=== PATIENT | male | born 1985 | race Caucasian/White ===

== ENCOUNTER 2017-12-27 20:04 | Emergency (ER) | payer OTHER ==
[2017-12-27] MEDS ORDERED: Ketorolac 60 MG/2 ML SDV IM ONE (20:18)
[2017-12-27] MEDS ORDERED: Acetaminophen/HYDROcodone 325-10 MG Tab PO ONE (20:18)
--- NOTE | 2017-12-27 20:22 | EDM.PDOC ---
ED HPI GENERAL MEDICAL PROBLEM - General Chief Complaint: Flank Pain Stated Complaint: BACK PAIN Time Seen by Provider: 12/27/17 20:08 - History of Present Illness INITIAL COMMENTS - FREE TEXT/NARRATIVE: HISTORY AND PHYSICAL: History of present illness: Patient 32-year-old white male presents with concern of back pain is had for several weeks he has seen a chiropractor for this without significant improvement he comes in now with persistent pain is worse with movement worse with bending he does do physical labor for living he's had no numbness weakness incontinence or retention bowel or bladder. Review of systems: As per history of present illness and below otherwise all systems reviewed and negative. Past medical history: As per history of present illness and as reviewed below otherwise noncontributory. Surgical history: As per history of present illness and as reviewed below otherwise noncontributory. Social history: No reported history of drug or alcohol abuse. Family history: As per history of present illness and as reviewed below otherwise noncontributory. Physical exam: HEENT: Atraumatic, normocephalic, pupils reactive, negative for conjunctival pallor or scleral icterus, mucous membranes moist, throat clear, neck supple, nontender, trachea midline. Lungs: Clear to auscultation, breath sounds equal bilaterally, chest nontender. Heart: S1S2, regular, negative for clicks, rubs, or JVD. Abdomen: Soft, nondistended, nontender. Negative for masses or hepatosplenomegaly. Negative for costovertebral tenderness. Pelvis: Stable nontender. Genitourinary: Deferred. Rectal: Deferred. Extremities: Atraumatic, negative for cords or calf pain. Neurovascular unremarkable. Neuro: Awake, alert, oriented. Cranial nerves II through XII unremarkable. Cerebellum unremarkable. Motor and sensory unremarkable throughout. Exam nonfocal. Back: Patient got some paravertebral tenderness this is not well localized but is in the lower thoracic and lumbar spine no vertebral body or point tenderness patient is able stand on his toes back on his heels tendon reflexes motor and sensory are normal Diagnostics: X-ray thoracic/lumbar spine UA EKG Therapeutics: Toradol 60 mg IM hydrocodone 10 mg by mouth Impression: 1 back pain Definitive disposition and diagnosis as appropriate pending reevaluation and review of above. - Related Data Allergies Allergy/AdvReac Type Severity Reaction Status Date / Time No Known Allergies Allergy Verified 12/27/17 20:14 Home Meds: Home Meds . [No Known Home Meds] 12/27/17 [History] ED ROS GENERAL - Review of Systems Review Of Systems: ROS reveals no pertinent complaints other than HPI. ED EXAM, GENERAL - Physical Exam Exam: See Below (See dictation) Course - Vital Signs Last Recorded V/S: Last Vital Signs Temp 36.6 C 12/27/17 20:04 Pulse 106 H 12/27/17 20:04 Resp 18 12/27/17 20:04 BP 134/93 H 12/27/17 20:04 Pulse Ox 96 12/27/17 20:04 - Orders/Labs/Meds Orders: Active Orders 24 hr Category Date Time Status EKG 12 Lead [EKG Documentation Completion] [RC] STAT Care 12/27/17 20:18 Active Thoracolumbar 2V [CR] Stat Exams 12/27/17 20:15 Taken UA W/MICROSCOPIC [URIN] Stat Lab 12/27/17 20:25 Ordered Labs: Laboratory Tests 12/27/17 Range/Units 20:25 Urine Color YELLOW Urine Appearance CLEAR Urine pH 5.5 (5.0-8.0) Ur Specific [place] >= 1.030 (1.001-1.035) Urine Protein NEGATIVE (NEGATIVE) mg/dL Urine Glucose (UA) NEGATIVE (NEGATIVE) mg/dL Urine Ketones NEGATIVE (NEGATIVE) mg/dL Urine Occult Blood NEGATIVE (NEGATIVE) Urine Nitrite NEGATIVE (NEGATIVE) Urine Bilirubin NEGATIVE (NEGATIVE) Urine Urobilinogen 0.2 (<2.0) EU/dL Ur Leukocyte Esterase NEGATIVE (NEGATIVE) Urine RBC 0-3 (0-2/HPF) Urine WBC 0-2 (0-5/HPF) Ur Epithelial Cells RARE (NONE-FEW) Urine Bacteria FEW (NEGATIVE) Urine Mucus LIGHT (NONE-MOD) Meds: Medications Discontinued Medications Generic Name Dose Route Start Last Admin Trade Name Freq PRN Reason Stop Dose Admin Hydrocodone Bitart/Acetaminophen 1 tab 12/27/17 20:18 12/27/17 20:32 [place] 325-10 Mg PO 12/27/17 20:19 1 tab ONETIME ONE Administration Ketorolac Tromethamine 60 mg 12/27/17 20:18 12/27/17 20:33 Toradol IM 12/27/17 20:19 60 mg ONETIME ONE Administration Departure - Departure Time of Disposition: 21:12 Disposition: Home, Self-Care 01 Condition: Good Clinical Impression: Back pain - Discharge Information Referrals: PCP,None [Primary Care Provider] - Forms: ED Department Discharge Additional Instructions: The following information is given to patients seen in the emergency department who are being discharged to home. This information is to outline your options for follow-up care. We provide all patients seen in our emergency department with a follow-up referral. The need for follow-up, as well as the timing and circumstances, are variable depending upon the specifics of your emergency department visit. If you don't have a primary care physician on staff, we will provide you with a referral. We always advise you to contact your personal physician following an emergency department visit to inform them of the circumstance of the visit and for follow-up with them and/or the need for any referrals to a consulting specialist. The emergency department will also refer you to a specialist when appropriate. This referral assures that you have the opportunity for followup care with a specialist. All of these measure are taken in an effort to provide you with optimal care, which includes your followup. Under all circumstances we always encourage you to contact your private physician who remains a resource for coordinating your care. When calling for followup care, please make the office aware that this follow-up is from your recent emergency room visit. If for any reason you are refused follow-up, please contact the [facility] emergency department at and asked to speak to the emergency department charge nurse. Ultram Flexeril Medrol as prescribed follow-up primary medical Dr.: Schedule routine appointment return as needed as discussed - My Orders Last 24 Hours: My Active Orders 12/27/17 20:15 Thoracolumbar 2V [CR] Stat 12/27/17 20:18 EKG 12 Lead [EKG Documentation Completion] [RC] STAT 12/27/17 20:25 UA W/MICROSCOPIC [URIN] Stat - Assessment/Plan Last 24 Hours: My Active Orders 12/27/17 20:15 Thoracolumbar 2V [CR] Stat 12/27/17 20:18 EKG 12 Lead [EKG Documentation Completion] [RC] STAT 12/27/17 20:25 UA W/MICROSCOPIC [URIN] Stat
--- NOTE | 2017-12-29 11:13 | CR ---
EXAM DATE: 12/27/17 PATIENT'S AGE: 32 Patient: COOPER ANDERSON Facility: [place], [place] Site . Site : 1985 Study: XRay Spine Thoracic thoracolumbar [id number]/5/2018 8:51:33 PM Ordering Physician: Viktoriya Chisholm Final Report: Clinical indication : Back pain for 2 weeks. FINDINGS: There are 5 lumbar type vertebrae. Lumbar intervertebral disc as well maintained. There is no fracture or dislocation. There is mild hypertrophic spurring of the superior endplate of T12. No other bone, disc or joint abnormality is identified. IMPRESSION: Mild hypertrophic spurring of the superior endplate of T12. Radiographically normal-appearing lumbar spine. Dictated by Ian Choi MD @ Dec 27 2017 9:10PM (Electronic Signature) Report Signed by Proxy. SILVESTRE
== END 2017-12-27 21:26 | disposition home or self-care (01) ==
LOC: MW.ED 20:04
DX: M54.5 Low back pain (principal); M54.6 Pain in thoracic spine
CPT/HCPCS: 72080; 81001; 93005; 96372; 99284; A9270; J1885; 99283

== ENCOUNTER 2022-05-30 19:25 | Emergency (ER) | payer OTHER ==
[~2022-05-30 19:25] MED LIST: Diphtheria,Pertussis(Acell),Tetanus Vaccine 0.5 ML Syringe IM ONE; Diphtheria/Tetanus Toxoids,Adult (Td) 0.5 ML Syringe IM ONE; Lidocaine 1% PF 2 ML SDV INJECT ONE; cefTRIAXone 500 MG Vial IM ONE
== END 2022-05-30 21:05 | disposition home or self-care (01) ==
LOC: MW.ED 19:25
DX: S62.612A Displaced fracture of proximal phalanx of right middle finger, initial encounter for closed fracture (principal); W10.9XXA Fall (on) (from) unspecified stairs and steps, initial encounter
CPT/HCPCS: 26700; 73140; 90471; 90714; 96372; 99283; J0696

== ENCOUNTER 2024-10-11 06:04 | Emergency (ER) | payer BC ==
[2024-10-11] MEDS: Ketorolac 30 MG/ML SDV IM ONE (06:40)
[2024-10-11] MEDS: Acetaminophen 500 MG Tab PO ONE (06:40)
[2024-10-11 07:13] LABS: BASOPHILS PERCENT AUTO 1.3 % (0.0-1.0); EOSINOPHILS ABSOLUTE AUTO 0.26 K/uL (0.00-0.45); EOSINOPHILS PERCENT AUTO 3.3 % (0.0-6.0); HEMATOCRIT 44.2 % (42.0-52.0); IMMATURE GRAN ABSOLUTE AUTO 0.01 K/uL (0.00-0.05); IMMATURE GRAN PERCENT AUTO 0.1 % (0.0-0.4); LYMPHOCYTES PERCENT AUTO 25.7 % (24.0-44.0); MEAN CORPUSCULAR HEMOGLOBIN 30.9 pg (28.0-32.0); MEAN CORPUSCULAR HGB CONC 36.2 g/dL (32.0-36.0); MEAN CORPUSCULAR VOLUME 85.3 fL (83.0-99.0); MEAN PLATELET VOLUME 9.6 fL (9.4-12.4); MONOCYTES ABSOLUTE AUTO 0.65 K/uL (0.00-0.80); MONOCYTES PERCENT AUTO 8.4 % (0.0-8.0); NEUTROPHILS ABSOLUTE AUTO 4.76 K/uL (1.80-7.70); NEUTROPHILS PERCENT AUTO 61.2 % (41.0-71.0); PLATELET COUNT,PLT 281 K/uL (150-400); RED BLOOD CELL COUNT 5.18 M/uL (4.52-5.90); WHITE BLOOD CELL COUNT,WBC 7.78 K/uL (3.9-11.3)
[2024-10-11 07:37] LABS: A/G RATIO 0.9 (0.9-1.6); ALBUMIN 3.4 g/dL (3.4-5.0); BILIRUBIN TOTAL 0.5 mg/dL (0.2-1.0); C-REACTIVE PROTEIN 1.55 mg/dL (<0.3); CALCIUM 8.6 mg/dL (8.5-10.1); CARBON DIOXIDE,CO2 21.4 mmol/L (21.0-32.0); CREATININE 0.9 mg/dL (0.8-1.3); EST CRCL DRUG DOSING (CG) 116.2 mL/min; POTASSIUM,K 3.7 mmol/L (3.5-5.1); PROTEIN TOTAL,TP 7.4 g/dL (6.4-8.2)
== END 2024-10-11 07:49 | disposition home or self-care (01) ==
LOC: MW.ED 06:04
DX: M06.9 Rheumatoid arthritis, unspecified (principal); M25.431 Effusion, right wrist; Z79.899 Other long term (current) drug therapy
CPT/HCPCS: 36415; 73110; 80053; 85025; 85652; 86140; 96372; 96374; 99283; A9270; J1100; J1885; 99284